=== PATIENT | female | born 1955 | race Caucasian/White ===

== ENCOUNTER 2017-12-22 20:33 | Emergency (ER) | payer SELFPAY ==
[~2017-12-22] VITALS: Ht 149.9 cm; Wt 74.8 kg
--- OUTSIDE RECORDS SUMMARY | 2017-12-22 20:37 | XMS REPORT ---
Author Author Reva Dean Organization Unknown Address Unknown Phone Care Team Providers Care Community Resource Officer Name Role Phone Reva Dean PP Unavailable Reason for Referral No Reason for Referral was given. History of Present Illness No HPI available. Problems * Normal Routine History And Physical Adult (V70.0); (Active) * Coronary Artery Disease (414.00); (Active) * Hypertension (401.9); (Active) * Thyroid Disorder (246.9); (Active) Medication * Metoprolol Succinate ER 50 MG Oral Tablet Extended Release 24 Hour; TAKE 1 TABLET BEDTIME; Start Date: ; End Date: (Active) * BuPROPion HCl ER (SR) 150 MG Oral Tablet Extended Release 12 Hour; TAKE 1 TABLET TWICE DAILY. (Active) * Nitrostat 0.4 MG Sublingual Tablet Sublingual; DISSOLVE 1 TABLET UNDER THE TONGUE NEEDED FOR CHEST PAIN.; Start Date: 10/06/2011; End Date: ( Active) * Clopidogrel Bisulfate 75 MG Oral Tablet; TAKE 1 TABLET DAILY; Start Date: 07/1899; End Date: (Active) * Protonix 40 MG Oral Packet; TAKE ONCE DAILY; Start Date: 10/31/2011; End Date : (Active) * Losartan Potassium 100 MG Oral Tablet; Start Date: 01/21/2012 (Active) * Levothyroxine Sodium 25 MCG Oral Tablet; TAKE 1 TABLET DAILY.; Start Date: 07/1899; End Date: (Active) * Aspirin 325 MG Oral Tablet; TAKE 1 TABLET DAILY.; Start Date: ; End Date: (Active) * Atorvastatin Calcium 80 MG Oral Tablet; TAKE 1 TABLET AT BEDTIME.; Start Date : ; End Date: (Active) * BuPROPion HCl 75 MG Oral Tablet; TAKE 1 TABLET TWICE DAILY.; Start Date: 05/26; End Date: (Active) * Isosorbide Mononitrate ER 30 MG Oral Tablet Extended Release 24 Hour; TAKE 1 TABLET DAILY.; Start Date: ; End Date: (Active) Allergies and Adverse Reactions * Penicillins (Active) * Codeine Derivatives (Active) Past Medical History * History of Coronary Artery Disease (V12.59); (Resolved) * History of Hypertension (401.9); (Resolved) Procedures Procedure Procedure Date Date Completed Status Cath Stent Placement - - Resolved Hysterectomy - - Resolved Section - - Resolved Family History * Paternal history of Acute Myocardial Infarction (V17.3); (Active) * Paternal history of Heart Disease (V17.49); (Active) Social History * Former Smoker Comments: quit in 09/23/2011 (V15.82); (Active) * Being A Social Drinker (Active) * Exercising Regularly (Active) * Daily Coffee Consumption (2 Cups/Day) (Active) Treatment Plan * [L] Lipid Panel w/ Chol/HDL Ratio 01/21/2012 Routine * [L] Hepatic Function Panel (7) 01/21/2012 Routine * [L] Lipid Panel w/ Chol/HDL Ratio 05/27/2012 Routine * [QLH] CMP W/EGFR 05/27/2012 Routine Advance Directives * No Advance Directives available. Encounters * AUDIT 07/20/2012 * EST, Provider: ARMAND FUNG, Status: Julio, Time: 1:00 PM 09/17/2012
--- OUTSIDE RECORDS SUMMARY | 2017-12-22 20:37 | XMS REPORT ---
Author Author ARMAND FUNG Organization Unknown Address Unknown Phone Care Team Providers Care President And Chief Operating Officer Name Role Phone KENTON CONSTANTINOBETZY PP Unavailable Reason for Referral No Reason for Referral was given. History of Present Illness No HPI available. Problems * Thyroid Disorder (246.9); (Active) * Hypertension (401.9); (Active) * Hyperlipidemia (272.4); (Active) * Coronary Artery Disease (414.00); (Active) * Normal Routine History And Physical Adult (V70.0); (Active) Medication * Levothyroxine Sodium 50 MCG Oral Tablet; TAKE 1 TABLET DAILY. (Active) * Aspirin 81 MG Oral Tablet; TAKE 1 TABLET DAILY. (Active) * Metoprolol Succinate ER 50 MG Oral Tablet Extended Release 24 Hour; TAKE 1 TABLET BEDTIME; Start Date: ; End Date: (Active) * Atorvastatin Calcium 80 MG Oral Tablet; TAKE 1 TABLET BY MOUTH AT BEDTIME; Start Date: 01/03/2013; End Date: (Active) * Nitrostat 0.4 MG Sublingual Tablet Sublingual; DISSOLVE 1 TABLET UNDER THE TONGUE NEEDED FOR CHEST PAIN.; Start Date: 10/06/2011; End Date: ( Active) * Clopidogrel Bisulfate 75 MG Oral Tablet; TAKE 1 TABLET BY MOUTH EVERY DAY; Start Date: 07/30/2012 (Active) * Losartan Potassium 100 MG Oral Tablet; TAKE 1 TABLET DAILY.; Start Date: 01/20; End Date: (Active) Allergies and Adverse Reactions * Penicillins (Active) * Codeine Derivatives (Active) * JOCE Inhibitors; Cough (Active) Past Medical History * History of Hypertension (401.9); (Resolved) * History of Coronary Artery Disease (V12.59); (Resolved) Procedures Procedure Procedure Date Date Completed [...] * Daily Coffee Consumption (2 Cups/Day) (Active) Advance Directives * No Advance Directives available. Encounters * AUDIT 01/24/2013 * EST, Provider: ARMAND FUNG, Status: Julio, Time: 1:00 PM 05/23/2013
--- OUTSIDE RECORDS SUMMARY | 2017-12-22 20:37 | XMS REPORT ---
Author Author ARMAND FUNG Organization Unknown Address Unknown Phone Care Team Providers Care Affiliate Marketing Specialist Name Role Phone KENTON SHEILAEMANUEL PP Unavailable Reason for Referral No Reason [...] Extended Release 24 Hour; TAKE 1 TABLET DAILY. (Active) Allergies and Adverse Reactions * Penicillins [...] No Advance Directives available. Encounters * AUDIT 07/28/2012 * EST, Provider: ARMAND FUNG, Status: Julio, Time: 1:00 PM 09/17/2012
--- OUTSIDE RECORDS SUMMARY | 2017-12-22 20:37 | XMS REPORT ---
Author Author ARMAND FUNG Organization Unknown Address Unknown Phone Care Team Providers Care Field Servicer Name Role Phone YOHANAChristopherROMEOBethany ARMAND PP Unavailable Reason for Referral No Reason for Referral was given. History of Present Illness No HPI available. Problems * Normal Routine History And Physical Adult (V70.0); (Active) * Coronary Artery Disease (414.00); (Active) * Hypertension (401.9); (Active) * Thyroid Disorder (246.9); (Active) * Hyperlipidemia (272.4); (Active) Medication * Metoprolol Succinate ER 50 MG Oral Tablet Extended Release 24 Hour; TAKE 1 TABLET BEDTIME; Start Date: ; End Date: (Active) * Nitrostat 0.4 MG Sublingual Tablet Sublingual; DISSOLVE 1 TABLET UNDER THE TONGUE NEEDED FOR CHEST PAIN.; Start Date: 10/06/2011; End Date: ( Active) * Clopidogrel Bisulfate 75 MG Oral Tablet; TAKE 1 TABLET BY MOUTH EVERY DAY; Start Date: 07/30/2012 (Active) * Protonix 40 MG Oral Packet; TAKE ONCE DAILY; Start Date: 10/31/2011; End Date : (Active) * Aspirin 325 MG Oral Tablet; TAKE 1 TABLET DAILY.; Start Date: ; End Date: (Active) * Levothyroxine Sodium 50 MCG Oral Tablet; TAKE 1 TABLET DAILY. (Active) * Losartan Potassium 100 MG Oral Tablet; TAKE 1 TABLET DAILY.; Start Date: 01/20; End Date: (Active) * Atorvastatin Calcium 80 MG Oral Tablet; TAKE 1 TABLET BY MOUTH AT BEDTIME; Start Date: 01/03/2013; End Date: (Active) Allergies and Adverse Reactions [...] No Advance Directives available. Encounters * AUDIT 01/18/2013 * EST, Provider: ARMAND FUNG, Status: Julio, Time: 1:00 PM 01/24/2013
--- OUTSIDE RECORDS SUMMARY | 2017-12-22 20:37 | XMS REPORT ---
[facility] Address Unknown Phone Unavailable Care Team Providers Care Recycling Coordinator Name Role Phone Unavailable Unavailable Problems This patient has no known problems. Allergies, Adverse Reactions, Alerts This patient has no known allergies or adverse reactions. Medications This patient has no known medications. Encounters Start Date/Time End Date/Time Encounter Type Admission Type Attending [facility] Care Department Encounter ID 2016-12-22 02:07:26 Inpatient [facility] [id number] 2016-12-21 03:22:07 Inpatient [facility] [id number] 2016-12-21 00:06:03 Inpatient [facility] [id number] 2016-12-20 00:07:33 Inpatient [facility] [id number] 2016-12-19 00:03:38 Inpatient [facility] [id number] 2016-12-18 07:30:48 Inpatient [facility] [id number] 2016-12-17 15:59:41 Inpatient [facility] [id number] 2016-12-14 06:36:41 Inpatient [facility] [id number] 2016-12-10 10:01:06 Inpatient [facility] [id number] 2018-01-19 00:00:00 2018-01-19 00:00:00 Outpatient [facility] [id number] 2017-12-23 00:00:00 2017-12-23 00:00:00 Outpatient [facility] [id number] 2017-11-16 13:57:46 2017-11-16 13:57:46 Outpatient [facility] [id number] 2017-10-14 12:51:02 2017-10-14 12:51:02 Outpatient [facility] [id number] 2017-10-07 13:05:10 2017-10-07 13:05:10 Outpatient [facility] [id number] 2017-09-21 13:48:01 2017-09-21 00:00:00 Inpatient [facility] [id number] 2017-09-21 08:19:57 2017-09-21 00:00:00 Inpatient [facility] [id number] 2017-09-18 20:33:06 2017-09-18 20:33:06 Inpatient [facility] [id number] 2017-09-18 22:29:31 2017-09-18 00:00:00 Inpatient [facility] [id number] 2017-08-06 13:57:52 2017-08-06 13:57:52 Outpatient [facility] [id number] 2017-07-30 13:03:04 2017-07-30 13:03:04 Outpatient [facility] [id number] 2017-07-24 14:13:51 2017-07-24 14:13:51 Outpatient [facility] [id number] 2017-07-24 14:13:11 2017-07-24 14:13:11 Outpatient [facility] [id number] 2017-07-23 14:48:21 2017-07-23 14:48:21 Outpatient [facility] [id number] 2017-07-08 00:00:00 2017-07-08 00:00:00 Outpatient [facility] [id number] 2017-07-06 03:08:17 2017-07-06 03:08:17 Emergency [facility] [id number] 2017-07-06 02:40:31 2017-07-06 02:40:31 Outpatient [facility] [id number] 2017-06-29 00:00:00 2017-06-29 00:00:00 Outpatient [facility] [id number] 2017-06-18 14:05:55 2017-06-18 14:05:55 Outpatient [facility] [id number] 2017-06-16 14:03:04 2017-06-16 14:03:04 Outpatient [facility] [id number] 2017-06-16 12:55:12 2017-06-16 12:55:12 Outpatient [facility] [id number] 2017-06-16 00:00:00 2017-06-16 00:00:00 Outpatient [facility] [id number] 2017-06-16 00:00:00 2017-06-16 00:00:00 Outpatient [facility] [id number] 2017-06-15 00:00:00 2017-06-15 00:00:00 Outpatient [facility] [id number] 2017-06-10 00:00:00 2017-06-10 00:00:00 Outpatient [facility] [id number] 2017-05-28 13:07:27 2017-05-28 13:07:27 Outpatient [facility] [id number] 2017-05-25 10:30:36 2017-05-25 10:30:36 Outpatient [facility] [id number] 2017-05-25 07:56:32 2017-05-25 07:56:32 Outpatient [facility] [id number] 2017-05-25 00:00:00 2017-05-25 00:00:00 Outpatient [facility] [id number] 2017-05-24 18:54:55 2017-05-24 18:54:55 Emergency [facility] [id number] 2017-05-24 18:46:36 2017-05-24 18:46:36 Outpatient [facility] [id number] 2017-05-08 08:11:44 2017-05-08 08:11:44 Outpatient [facility] [id number] 2017-05-01 14:49:38 2017-05-01 14:49:38 Outpatient [facility] [id number] 2017-04-20 08:18:00 2017-04-20 08:18:00 Outpatient [facility] [id number] 2017-04-17 13:46:45 2017-04-17 13:46:45 Outpatient [facility] [id number] 2017-03-25 16:59:06 2017-03-25 16:59:06 Outpatient [facility] [id number] 2017-03-04 14:41:19 2017-03-04 14:41:19 Outpatient [facility] [id number] 2017-02-23 00:00:00 2017-02-23 00:00:00 Outpatient [facility] [id number] 2017-02-18 00:00:00 2017-02-18 00:00:00 Outpatient [facility] [id number] 2017-01-28 00:00:00 2017-01-28 00:00:00 Outpatient [facility] [id number] 2017-01-19 22:49:09 2017-01-19 22:49:09 Emergency [facility] [id number] 2017-01-19 20:22:13 2017-01-19 20:22:13 Emergency [facility] [id number] 2017-01-19 15:49:29 2017-01-19 15:49:29 Emergency [facility] [id number] 2017-01-19 00:00:00 2017-01-19 00:00:00 Outpatient [facility] [id number] 2017-01-19 00:00:00 2017-01-19 00:00:00 Emergency [facility] [id number] 2017-01-07 11:10:29 2017-01-07 11:10:29 Outpatient [facility] [id number] 2017-01-07 10:12:00 2017-01-07 10:12:00 Outpatient [facility] [id number] 2017-01-07 00:00:00 2017-01-07 00:00:00 Outpatient [facility] [id number] 2017-01-03 19:08:57 2017-01-03 19:08:57 Emergency [facility] [id number] 2016-12-21 14:41:39 2016-12-21 00:00:00 Inpatient [facility] [id number] 2016-12-20 17:44:10 2016-12-20 00:00:00 Inpatient [facility] [id number] 2016-12-18 18:36:35 2016-12-18 00:00:00 Inpatient [facility] [id number] 2016-12-18 16:14:19 2016-12-18 00:00:00 Inpatient [facility] [id number] 2016-12-18 15:11:30 2016-12-18 00:00:00 Inpatient [facility] [id number] 2016-12-16 15:50:58 2016-12-16 00:00:00 Inpatient [facility] [id number] 2016-12-11 04:27:36 2016-12-11 00:00:00 Inpatient [facility] [id number] 2016-12-10 11:27:56 2016-12-10 00:00:00 Inpatient [facility] [id number] 2016-12-10 09:29:45 2016-12-10 00:00:00 Inpatient [facility] [id number] 2016-12-10 09:29:41 2016-12-10 00:00:00 Inpatient [facility] [id number] 2016-12-09 15:47:09 2016-12-09 00:00:00 Inpatient [facility] [id number] 2016-12-09 15:09:54 2016-12-09 00:00:00 Inpatient [facility] [id number] 2016-12-09 15:03:13 2016-12-09 00:00:00 Inpatient [facility] [id number] 2016-12-08 05:44:51 2016-12-08 05:44:51 Emergency [facility] [id number] 2016-12-08 05:33:34 2016-12-08 05:33:34 Inpatient [facility] [id number] 2016-12-03 13:07:22 2016-12-03 13:07:22 Outpatient [facility] [id number]
--- OUTSIDE RECORDS SUMMARY | 2017-12-22 20:37 | XMS REPORT ---
Author Author Tracy Matute Organization Unknown Address Unknown Phone Care Team Providers Care Molecular Modeler Name Role Phone Tracy Matute PP Unavailable Reason for Referral No Reason for Referral was given. History of Present Illness No HPI available. Problems * Coronary Artery Disease (414.00); (Active) * Hypertension (401.9); (Active) * Thyroid Disorder (246.9); (Active) * Normal Routine History And Physical Adult (V70.0); (Active) Medication * Clopidogrel Bisulfate 75 MG Oral Tablet; TAKE 1 TABLET BY MOUTH EVERY DAY; Start Date: 07/30/2012; End Date: (Active) * Isosorbide Mononitrate ER 30 MG Oral Tablet Extended Release 24 Hour; TAKE 1 TABLET DAILY. (Active) * BuPROPion HCl ER (SR) 150 MG Oral Tablet Extended Release 12 Hour; TAKE 1 TABLET TWICE DAILY. (Active) * Losartan Potassium 100 MG Oral Tablet; Start Date: 01/21/2012 (Active) * Levothyroxine Sodium 25 MCG Oral Tablet; TAKE 1 TABLET DAILY.; Start Date: 07/1899; End Date: (Active) * BuPROPion HCl 75 MG Oral Tablet; TAKE 1 TABLET TWICE DAILY.; Start Date: 05/26; End Date: (Active) * Nitrostat 0.4 MG Sublingual Tablet Sublingual; DISSOLVE 1 TABLET UNDER THE TONGUE NEEDED FOR CHEST PAIN.; Start Date: 10/06/2011; End Date: ( Active) * Protonix 40 MG Oral Packet; TAKE ONCE DAILY; Start Date: 10/31/2011; End Date : (Active) * Metoprolol Succinate ER 50 MG Oral Tablet Extended Release 24 Hour; TAKE 1 TABLET BEDTIME; Start Date: ; End Date: (Active) * Atorvastatin Calcium 80 MG Oral Tablet; TAKE 1 TABLET AT BEDTIME.; Start Date : ; End Date: (Active) * Aspirin 325 MG Oral Tablet; TAKE 1 TABLET DAILY.; Start Date: ; End Date: (Active) Allergies and Adverse Reactions * Penicillins (Active) * Codeine Derivatives (Active) Past Medical History * History of Coronary Artery Disease (V12.59); (Resolved) * History of Hypertension (401.9); (Resolved) Procedures Procedure Procedure Date Date Completed Status Cath Stent Placement - - Resolved Section - - Resolved Hysterectomy - - Resolved Family History * Paternal history of Heart Disease (V17.49); (Active) * Paternal history of Acute Myocardial Infarction (V17.3); (Active) Social History * Daily Coffee Consumption (2 Cups/Day) (Active) * Exercising Regularly (Active) * Being A Social Drinker (Active) * Former Smoker Comments: quit in 09/23/2011 (V15.82); (Active) Advance Directives * No Advance Directives available. Encounters * AUDIT 08/04/2012 * EST, Provider: ARMAND FUNG, Status: Julio, Time: 1:00 PM 09/17/2012
--- OUTSIDE RECORDS SUMMARY | 2017-12-22 20:37 | XMS REPORT ---
Author Author ARMAND FUNG Organization Unknown Address Unknown Phone Care Team Providers Care Pump Rebuilder Name Role Phone KENTON CONSTANTINOBETZY PP Unavailable Reason for Referral No Reason for Referral was given. History of Present Illness No HPI available. Problems * Coronary Artery Disease (414.00); (Active) * Hypertension (401.9); (Active) * Thyroid Disorder (246.9); (Active) * Normal Routine History And Physical Adult (V70.0); (Active) Medication * Metoprolol Succinate ER 50 [...] No Advance Directives available. Encounters * AUDIT 08/06/2012 * EST, Provider: ARMAND FUNG, Status: Julio, Time: 1:00 PM 09/17/2012
--- OUTSIDE RECORDS SUMMARY | 2017-12-22 20:37 | XMS REPORT ---
Author Author Reva Dean Organization Unknown Address Unknown Phone Care Team Providers Care Communication Professor Name Role Phone Reva Dean PP Unavailable Reason for Referral No Reason for Referral was given. History of Present Illness No HPI available. Problems * Normal Routine History And Physical Adult (V70.0); (Active) * Coronary Artery Disease (414.00); (Active) * Hyperlipidemia (272.4); (Active) * Hypertension (401.9); (Active) * Murmurs (785.2); (Active) * Mitral Regurgitation (424.0); (Active) * Thyroid Disorder (246.9); (Active) * Tricuspid Regurgitation (397.0); (Active) Medication * Metoprolol Succinate ER 50 [...] Start Date: 07/30/2012; End Date: (Active) * Levothyroxine Sodium 50 MCG Oral Tablet; TAKE 1 TABLET DAILY. (Active) * Aspirin 81 MG Oral Tablet; TAKE 1 TABLET DAILY. (Active) * Losartan Potassium 100 MG Oral Tablet; TAKE 1 TABLET BY MOUTH DAILY; Start Date: 01/21/2012; End Date: (Active) * Atorvastatin Calcium 80 [...] Daily Coffee Consumption (2 Cups/Day) (Active) * Working Construction Engineer (Active) * Marital History - Currently (Active) Treatment Plan * [N] Plain Treadmill-Non Imaging Stress Test-Standard Derrell Routine * [QLH] LIPID PANEL Routine * [QLH] CMP W/EGFR Routine Advance Directives * No Advance Directives available. Encounters * AUDIT 11/18/2013
--- OUTSIDE RECORDS SUMMARY | 2017-12-22 20:37 | XMS REPORT ---
Author Author Fausto, October Organization Unknown Address Unknown Phone Care Team Providers Care Power Plant Engineer Name Role Phone Fausto, October PP Unavailable Reason for Referral No Reason [...] Coffee Consumption (2 Cups/Day) (Active) * Working Branch Officer (Active) * Marital History - Currently (Active) Treatment Plan * [N] Plain Treadmill-Non Imaging Stress Test-Standard Derrell Routine * [QLH] LIPID PANEL Routine * [QLH] CMP W/EGFR Routine Advance Directives * No Advance Directives available. Encounters * AUDIT 10/19/2013
--- OUTSIDE RECORDS SUMMARY | 2017-12-22 20:37 | XMS REPORT ---
Author Author Reva Dean Organization Unknown Address Unknown Phone Care Team Providers Care Dietary Cook Name Role Phone Reva Dean PP Unavailable [...] Consumption (2 Cups/Day) (Active) Treatment Plan * [QLH] LIPID PANEL Routine * [QLH] CMP W/EGFR Routine Advance Directives * No Advance Directives available. Encounters * AUDIT 01/03/2013 * EST, Provider: ARMAND FUNG, Status: Julio, Time: 1:00 PM 01/24/2013
--- OUTSIDE RECORDS SUMMARY | 2017-12-22 20:37 | XMS REPORT ---
Author Author ARMAND FUNG Organization Unknown Address Unknown Phone Care Team Providers Care Database Marketing Manager Name Role Phone EDDYROMEOBethany ARMAND PP Unavailable Reason for Referral No Reason for Referral was given. History of Present Illness No HPI available. Problems * Coronary Artery Disease (414.00); (Active) * Hypertension (401.9); (Active) * Hyperlipidemia (272.4); (Active) * Normal Routine History And Physical Adult (V70.0); (Active) * Thyroid Disorder (246.9); (Active) Medication * Clopidogrel Bisulfate 75 MG Oral Tablet; TAKE 1 TABLET BY MOUTH EVERY DAY; Start Date: 07/30/2012 (Active) * Levothyroxine Sodium 50 MCG Oral Tablet; TAKE 1 TABLET DAILY. (Active) * Losartan Potassium 100 MG Oral Tablet; TAKE 1 TABLET DAILY.; Start Date: 01/20 (Active) * Nitrostat 0.4 MG Sublingual Tablet [...] Start Date: ; End Date: (Active) * Aspirin 325 MG Oral Tablet; TAKE 1 TABLET DAILY.; Start Date: ; End Date: (Active) * Atorvastatin Calcium 80 MG Oral Tablet; TAKE 1 TABLET AT BEDTIME.; Start Date : ; End Date: (Active) Allergies and Adverse [...] No Advance Directives available. Encounters * AUDIT 09/24/2012 * EST, Provider: ARMAND FUNG, Status: Julio, Time: 1:00 PM 01/24/2013
--- OUTSIDE RECORDS SUMMARY | 2017-12-22 20:37 | XMS REPORT ---
Author Author Reva Dean Organization Unknown Address Unknown Phone Care Team Providers Care Rand Butter Name Role Phone Reva Dean PP Unavailable Reason for Referral No Reason for Referral was given. History of Present Illness No HPI available. Problems * Coronary Artery Disease (414.00); (Active) * Hypertension (401.9); (Active) * Normal Routine History And Physical Adult (V70.0); (Active) * Hyperlipidemia (272.4); (Active) * Thyroid Disorder (246.9); (Active) Medication * Aspirin 81 MG Oral Tablet; TAKE 1 TABLET DAILY. (Active) * Levothyroxine Sodium 50 MCG Oral Tablet; TAKE 1 TABLET DAILY. (Active) * Clopidogrel Bisulfate 75 MG Oral Tablet; TAKE 1 TABLET BY MOUTH EVERY DAY; Start Date: 07/30/2012; End Date: (Active) * Nitrostat 0.4 MG Sublingual Tablet Sublingual; DISSOLVE 1 TABLET UNDER THE TONGUE NEEDED FOR CHEST PAIN.; Start Date: 10/06/2011; End Date: ( Active) * Metoprolol Succinate ER 50 MG Oral Tablet Extended Release 24 Hour; TAKE 1 TABLET BEDTIME; Start Date: ; End Date: (Active) * Losartan Potassium 100 MG Oral [...] Heart Disease (V17.49); (Active) Social History * Daily Coffee Consumption (2 Cups/Day) (Active) * Former Smoker Comments: quit in 09/23/2011 (V15.82); (Active) * Being A Social Drinker (Active) * Exercising Regularly (Active) Advance Directives * No Advance Directives available. Encounters * AUDIT 02/10/2013 * EST, Provider: ARMAND FUNG, Status: Julio, Time: 1:00 PM 05/23/2013
--- OUTSIDE RECORDS SUMMARY | 2017-12-22 20:37 | XMS REPORT ---
Author Author Kyra Ro Organization Unknown Address Unknown Phone Care Team Providers Care Insulation Inspector Name Role Phone Kyra Ro PP Unavailable Reason for Referral No Reason [...] No Advance Directives available. Encounters * AUDIT 03/16/2013 * EST, Provider: ARMAND FUNG, Status: Julio, Time: 1:00 PM 05/23/2013
--- OUTSIDE RECORDS SUMMARY | 2017-12-22 20:37 | XMS REPORT ---
Author Author Jermaine Reva Organization Unknown Address Unknown Phone Care Team Providers Care Metal Spraying Machine Operator Name Role Phone Reva Dean PP Unavailable Reason for Referral No Reason for Referral was given. History of Present Illness No HPI available. Problems * Normal Routine History And Physical Adult (V70.0); (Active) * Coronary Artery Disease (414.00); (Active) * Hypertension (401.9); (Active) * Thyroid Disorder (246.9); (Active) * Hyperlipidemia (272.4); (Active) Medication * Aspirin 81 MG Oral [...] Date: 10/06/2011; End Date: ( Active) * Losartan Potassium 100 MG Oral Tablet; TAKE 1 TABLET DAILY.; Start Date: 01/20; End Date: (Active) * Clopidogrel Bisulfate 75 MG Oral Tablet; TAKE 1 TABLET BY MOUTH EVERY DAY; Start Date: 07/30/2012; End Date: (Active) Allergies and Adverse Reactions [...] No Advance Directives available. Encounters * AUDIT 03/11/2013 * EST, Provider: ARMAND FUNG, Status: Julio, Time: 1:00 PM 05/23/2013
--- OUTSIDE RECORDS SUMMARY | 2017-12-22 20:37 | XMS REPORT | Continuity of Care Document ---
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 2016 [facility] Essential (primary) hypertension Active 05/26/2017 [facility] Hypothyroidism, unspecified Active 05/25/2017 [facility] Prediabetes Active 2016 [facility] Tobacco use Active 2016 [facility] Adjustment disorder with mixed anxiety and depressed mood Active 04/11/2016 [facility] Coronary Artery Disease Active 11/18/2013 [facility] Hypertension Active 11/18/2013 [facility] Thyroid Disorder Active 11/18/2013 [facility] Hyperlipidemia Active 11/18/2013 [facility] Murmurs Active 11/18/2013 [facility] Mitral Regurgitation Active 11/18/2013 [facility] Tricuspid Regurgitation Active 11/18/2013 [facility] Dental Edentulous Active [facility] Encounter for immunization Active [facility] Presence of aortocoronary bypass graft Active [facility] Atherosclerotic heart disease of [place] coronary artery without angina pectoris Active [facility] Encounter for screening for nutritional disorder Active [facility] Encounter for screening for malignant neoplasm of colon Active [facility] Encounter for screening mammogram for malignant neoplasm of breast Active [facility] Depression Active [facility] Encounter for follow-up examination after completed treatment for conditions other than malignant neoplasm Active [facility] Other allergic rhinitis Active [facility] Acute upper respiratory infection, unspecified Active [facility] Other viral agents as the cause of diseases classified elsewhere Active [facility] Medications Medication Details Route Status Patient Instructions Ordering Provider Order Date Source Atorvastatin Calcium 80 MG Oral Tablet <span ID= "[id number]">Atorvastatin Calcium 80 MG Oral Tablet</span>; < span ID="[id number]">TAKE 1 TABLET BY MOUTH AT BEDTIME</span>; Start Date: 01/03/2013; End Date: (Active) Active 01/03/2013 [facility] Clopidogrel Bisulfate 75 MG Oral Tablet <span ID= "[id number]">Clopidogrel Bisulfate 75 MG Oral Tablet</span>; < span ID="[id number]">TAKE 1 TABLET BY MOUTH EVERY DAY</span>; Start Date: 07/30/2012; End Date: (Active) Active 07/30/2012 [facility] BuPROPion HCl 75 MG Oral Tablet <span ID= "[id number]">BuPROPion HCl 75 MG Oral Tablet</span>; <span ID= "[id number]">TAKE 1 TABLET TWICE DAILY.</span>; Start Date: 05/26/2012 ; End Date: (Active) Active 05/26/2012 [facility] Losartan Potassium 100 MG Oral Tablet <span ID= "[id number]">Losartan Potassium 100 MG Oral Tablet</span>; <span ID="[id number]">TAKE 1 TABLET BY MOUTH DAILY</span>; Start Date: 2011; End Date: (Active) Active 01/21/2012 [facility] Protonix 40 MG Oral Packet <span ID="[id number] entryName">Protonix 40 MG Oral Packet</span>; <span ID="[id number]"> TAKE ONCE DAILY</span>; Start Date: 10/31/2011; End Date: (Active) Active 10/31/2011 [facility] Nitrostat 0.4 MG Sublingual Tablet Sublingual <span ID ="[id number]">Nitrostat 0.4 MG Sublingual Tablet Sublingual</span >; <span ID="[id number]">DISSOLVE 1 TABLET UNDER THE TONGUE NEEDED FOR CHEST PAIN.</span>; Start Date: 10/06/2011; End Date: (Active) Active 10/06/2011 [facility] Metoprolol Succinate ER 50 MG Oral Tablet Extended Release 24 Hour <span ID="[id number]">Metoprolol Succinate ER 50 MG Oral Tablet Extended Release 24 Hour</span>; <span ID="[id number]"> TAKE 1 TABLET BEDTIME</span>; Start Date: ; End Date: ( Active) Inactive [facility] Levothyroxine Sodium 25 MCG Oral Tablet <span ID= "[id number]">Levothyroxine Sodium 25 MCG Oral Tablet</span>; < span ID="[id number]">TAKE 1 TABLET DAILY.</span>; Start Date: 1899; End Date: (Active) Inactive [facility] Aspirin 325 MG Oral Tablet <span ID="[id number] entryName">Aspirin 325 MG Oral Tablet</span>; <span ID="[id number]"> TAKE 1 TABLET DAILY.</span>; Start Date: ; End Date: ( Active) Inactive [facility] Atorvastatin Calcium 80 MG Oral Tablet <span ID= "[id number]">Atorvastatin Calcium 80 MG Oral Tablet</span>; < span ID="[id number]">TAKE 1 TABLET AT BEDTIME.</span>; Start Date: 07/1899; End Date: (Active) Inactive [facility] Clopidogrel Bisulfate 75 MG Oral Tablet <span ID= "[id number]">Clopidogrel Bisulfate 75 MG Oral Tablet</span>; < span ID="[id number]">TAKE 1 TABLET DAILY</span>; Start Date: ; End Date: (Active) Inactive [facility] Isosorbide Mononitrate ER 30 MG Oral Tablet Extended Release 24 Hour <span ID="[id number]">Isosorbide Mononitrate ER 30 MG Oral Tablet Extended Release 24 Hour</span>; <span ID="[id number] ">TAKE 1 TABLET DAILY.</span>; Start Date: ; End Date: ( Active) Inactive [facility] Metoprolol Succinate ER 50 MG Oral Tablet Extended Release 24 Hour <span ID="[id number]">Metoprolol Succinate ER 50 MG Oral Tablet Extended Release 24 Hour</span>; <span ID="[id number]"> TAKE 1 TABLET BEDTIME</span>; Start Date: ; End Date: ( Active) Inactive [facility] BuPROPion HCl ER (SR) 150 MG Oral Tablet Extended Release 12 Hour <span ID="[id number]">BuPROPion HCl ER (SR) 150 MG Oral Tablet Extended Release 12 Hour</span>; <span ID="[id number]"> TAKE 1 TABLET TWICE DAILY.</span> (Active) Active [facility] Isosorbide Mononitrate ER 30 MG Oral Tablet Extended Release 24 Hour <span ID="[id number]">Isosorbide Mononitrate ER 30 MG Oral Tablet Extended Release 24 Hour</span>; <span ID="[id number] ">TAKE 1 TABLET DAILY.</span> (Active) Active [facility] Aspirin 81 MG Oral Tablet <span ID="[id number] entryName">Aspirin 81 MG Oral Tablet</span>; <span ID="[id number]"> TAKE 1 TABLET DAILY.</span> (Active) Active [facility] Levothyroxine Sodium 50 MCG Oral Tablet <span ID= "[id number]">Levothyroxine Sodium 50 MCG Oral Tablet</span>; < span ID="[id number]">TAKE 1 TABLET DAILY.</span> (Active) Active [facility] Allergies, Adverse Reactions, Alerts Substance Category Reaction Severity Reaction type Status Date Reported Comments Source Penicillins drug allergy drug allergy Active [facility] Codeine Derivatives drug allergy drug allergy Active [facility] JOCE Inhibitors drug allergy Cough drug allergy Active [facility] Immunizations Immunization Date Given Site Status Last Updated Comments Source Results Order Name Results Value Reference Range Date Interpretation Comments Source Vital Signs Vital Sign Value Date Comments Source Encounters Location Location Details Encounter Type Encounter Number Reason For Visit Attending Provider ADM Date DC Date Status Source AUDIT [id number] 07/04/2012 07/05/2012 [facility] AUDIT [id number] 07/20/2012 07/20/2012 [facility] AUDIT [id number] 07/28/2012 07/29/2012 [facility] AUDIT [id number] 08/04/2012 08/05/2012 [facility] AUDIT [id number] 08/06/2012 08/06/2012 [facility] EST, Provider: ARMAND FUNG, Status: Pen, Time: 1:00 PM [id number] 09/17/2012 08/06/2012 [facility] AUDIT [id number] 09/24/2012 09/24/2012 [facility] AUDIT [id number] 11/19/2012 11/20/2012 [facility] AUDIT [id number] 11/29/2012 11/30/2012 [facility] AUDIT [id number] 01/03/2013 01/03/2013 [facility] AUDIT [id number] 01/18/2013 01/19/2013 [facility] EST, Provider: ARMAND FUNG, Status: Pen, Time: 1:00 PM [id number] 201201/19/2013 [facility] AUDIT [id number] 01/24/2013 01/25/2013 [facility] AUDIT [id number] 02/10/2013 02/10/2013 [facility] AUDIT [id number] 03/11/2013 03/11/2013 [facility] AUDIT [id number] 03/16/2013 03/16/2013 [facility] EST, Provider: ARMAND FUNG, Status: Pen, Time: 1:00 PM [id number] 201203/16/2013 [facility] AUDIT [id number] 10/19/2013 10/19/2013 [facility] AUDIT [id number] 11/18/2013 11/18/2013 [facility] Procedures Procedure Code Date Perfomer Comments Source
--- OUTSIDE RECORDS SUMMARY | 2017-12-22 20:37 | XMS REPORT ---
Author Author Reva Dean Organization Unknown Address Unknown Phone Care Team Providers Care Instructor Robotics Name Role Phone Reva Dean PP Unavailable Reason for Referral No Reason for Referral was given. History of Present Illness No HPI available. Problems * Hyperlipidemia (272.4); (Active) * Normal Routine [...] Date: 10/31/2011; End Date : (Active) * Atorvastatin Calcium 80 MG Oral Tablet; TAKE 1 TABLET AT BEDTIME.; Start Date : ; End Date: (Active) * Aspirin 325 MG Oral Tablet; TAKE 1 TABLET DAILY.; Start Date: ; End Date: (Active) * Clopidogrel Bisulfate 75 MG Oral Tablet; TAKE 1 TABLET BY MOUTH EVERY DAY; Start Date: 07/30/2012 (Active) Allergies and Adverse Reactions * Penicillins [...] (2 Cups/Day) (Active) Treatment Plan * [[facility]] CMP W/EGFR Routine * [[facility]] LIPID PANEL Routine Advance Directives * No Advance Directives available. Encounters * AUDIT 11/19/2012 * EST, Provider: ARMAND FUNG, Status: Julio, Time: 1:00 PM 01/24/2013
--- OUTSIDE RECORDS SUMMARY | 2017-12-22 20:37 | XMS REPORT ---
Author Author Reva Dean Organization Unknown Address Unknown Phone Care Team Providers Care Production Welding Supervisor Name Role Phone Reva Dean PP Unavailable Reason for Referral No Reason for Referral was given. History of Present Illness No HPI available. Problems * Normal Routine History And Physical Adult (V70.0); (Active) * Coronary Artery Disease (414.00); (Active) * Hypertension (401.9); (Active) * Thyroid Disorder (246.9); (Active) * Hyperlipidemia (272.4); (Active) Medication * Levothyroxine Sodium 50 MCG Oral Tablet; TAKE 1 TABLET DAILY. (Active) * Protonix 40 MG Oral Packet; TAKE ONCE DAILY; Start Date: 10/31/2011; End Date : (Active) * Losartan Potassium 100 MG Oral Tablet; TAKE 1 TABLET DAILY.; Start Date: 01/20; End Date: (Active) * Nitrostat 0.4 MG Sublingual Tablet Sublingual; DISSOLVE 1 TABLET UNDER THE TONGUE NEEDED FOR CHEST PAIN.; Start Date: 10/06/2011; End Date: ( Active) * Atorvastatin Calcium 80 MG Oral Tablet; TAKE 1 TABLET AT BEDTIME.; Start Date : ; End Date: (Active) * Aspirin 325 MG Oral Tablet; TAKE 1 TABLET DAILY.; Start Date: ; End Date: (Active) * Clopidogrel Bisulfate 75 MG Oral Tablet; TAKE 1 TABLET BY MOUTH EVERY DAY; Start Date: 07/30/2012 (Active) * Metoprolol Succinate ER 50 MG Oral Tablet Extended Release 24 Hour; TAKE 1 TABLET BEDTIME; Start Date: ; End Date: (Active) Allergies [...] No Advance Directives available. Encounters * AUDIT 11/29/2012 * EST, Provider: ARMAND FUNG, Status: Julio, Time: 1:00 PM 01/24/2013
--- OUTSIDE RECORDS SUMMARY | 2017-12-22 20:37 | XMS REPORT ---
Author Author ARMAND FUNG Organization Unknown Address Unknown Phone Care Team Providers Care Electrical Logging Engineer Name Role Phone EDDYSHARRAO ARMAND PP Unavailable Reason for Referral No Reason for Referral was given. History of Present Illness No HPI available. Problems * Normal Routine History And Physical Adult (V70.0); (Active) * Coronary Artery Disease (414.00); (Active) * Hypertension (401.9); (Active) * Thyroid Disorder (246.9); (Active) Medication * Losartan Potassium 100 MG Oral Tablet; Start Date: 01/21/2012 (Active) * BuPROPion HCl ER (SR) 150 MG Oral Tablet Extended Release 12 Hour; TAKE 1 TABLET TWICE DAILY. (Active) * Nitrostat 0.4 MG Sublingual Tablet Sublingual; DISSOLVE 1 TABLET UNDER THE TONGUE NEEDED FOR CHEST PAIN.; Start Date: 10/06/2011; End Date: ( Active) * Levothyroxine Sodium 25 MCG Oral Tablet; TAKE 1 TABLET DAILY.; Start Date: 07/1899; End Date: (Active) * BuPROPion HCl 75 MG Oral Tablet; TAKE 1 TABLET TWICE DAILY.; Start Date: 05/26; End Date: (Active) * Protonix 40 MG Oral Packet; TAKE ONCE DAILY; Start Date: 10/31/2011; End Date : (Active) * Metoprolol Succinate ER 50 MG Oral Tablet Extended Release 24 Hour; TAKE 1 TABLET BEDTIME; Start Date: ; End Date: (Active) * Clopidogrel Bisulfate 75 MG Oral Tablet; TAKE 1 TABLET DAILY; Start Date: 07/1899; End Date: (Active) * Atorvastatin Calcium 80 MG Oral Tablet; TAKE 1 TABLET AT BEDTIME.; Start Date : ; End Date: (Active) * Aspirin 325 MG Oral Tablet; TAKE 1 TABLET DAILY.; Start Date: ; End Date: (Active) * Isosorbide Mononitrate ER [...] Hepatic Function Panel (7) 01/21/2012 Routine * [[facility]] CMP W/EGFR 05/27/2012 Routine * [L] Lipid Panel w/ Chol/HDL Ratio 05/27/2012 Routine Advance Directives * No Advance Directives available. Encounters * AUDIT 07/04/2012 * EST, Provider: ARMAND FUNG, Status: Julio, Time: 1:00 PM 09/17/2012
== END 2017-12-22 21:55 | disposition home or self-care (01) ==
LOC: FSED 20:33
DX: S90.465A Insect bite (nonvenomous), left lesser toe(s), initial encounter (principal); W57.XXXA Bitten or stung by nonvenomous insect and other nonvenomous arthropods, initial encounter; E78.5 Hyperlipidemia, unspecified; I25.10 Atherosclerotic heart disease of native coronary artery without angina pectoris; I25.2 Old myocardial infarction; Z86.73 Personal history of transient ischemic attack (TIA), and cerebral infarction without residual deficits; Z95.1 Presence of aortocoronary bypass graft; Z95.5 Presence of coronary angioplasty implant and graft; I10 Essential (primary) hypertension
CPT/HCPCS: 99283